=== PATIENT | male | born 1985 | race Caucasian/White ===

== ENCOUNTER 2025-07-21 15:30 | Inpatient (IN) | payer OTHER, SELFPAY ==
[2025-07-21] VITALS (14 sets, daily range): BP systolic 135–182; BP diastolic 75–103; BMI 18.8
[2025-07-21 07:55] LABS: Hematocrit 44.4 % (39.0-52.0); Hemoglobin 15.7 g/dL (13.0-18.0); Mean Corp Hgb Conc. 35.4 g/dL (33.0-37.0); Mean Corpuscular Volume 83.9 fL (80.0-94.0); Nucleated Red Blood Cells % 0 % (-); Platelet Count 327 10^3/uL (130-400); Red Cell Dist. Width 13.0 % (11.5-14.5)
[2025-07-21 08:19] LABS: AST (SGOT) 48 U/L (17-59); Albumin 5.0 g/dl (3.5-5.0); Alkaline Phosphatase 77 U/L (38-126); Blood Urea Nitrogen 20 mg/dl (9-20); Calcium 9.9 mg/dl (8.4-10.2); Carbon Dioxide 25 mmol/L (22-30); Chloride 101 mmol/L (98-107); Estimated Creatinine Clearance > 125 ml/min; Glucose 141 mg/dl (70-99); Potassium 3.9 mmol/L (3.5-5.1); Sodium 142 mmol/L (135-145); Total Protein 8.1 g/dl (6.3-8.2); eGFR > 60.00
--- NOTE | 2025-07-21 09:08 | ED.GENMED ---
History of Present Illness
<BETSEY Stahl Jr. Last Filed: 07/21/25 15:32>
General
Chief Complaint: Withdrawal Symptoms
Source: patient and police
Exam Limitations: none
Time Seen by Provider: 07/21/25 08:05
Nursing documentation reviewed up to this point in time: agreed with
History of Present Illness
History of Present Illness:
39-year-old male past medical history of substance abuse issues. Currently on 100 mg of methadone daily as well as daily use of 5-6 bags of fentanyl that he smokes. He claims that [facility] and has not gotten his methadone dose
and he is starting to have significant withdrawal at this point. Feels very shaky weak tired achy anxious nauseous.
Review of Systems
<BETSEY Stahl Jr. Last Filed: 07/21/25 15:32>
Review of Systems
Allergies reviewed?: Yes
All Other Systems: ROS reviewed and negative except as documented in HPI and ROS
Phy Exam
<BETSEY Stahl Jr. Last Filed: 07/21/25 15:32>
Physical Exam
Physical Exam:
GENERAL: Alert , tremulous agitated
EYE: pupils equal and reactive
NECK: Supple, no significant adenopathy.
ENT: o/p clr, mmm.
CARDIAC: Regular rate and rhythm .
LUNGS: Clear breath sounds bilaterally, no acute respiratory distress, no wheezes/rales/rhonchi
ABDOMEN: Soft, without focal tenderness, no r/g, no cvat
NEUROLOGICAL: Alert and oriented, no focal neuro deficits
SKIN: Warm and dry, skin intact.
MUSCULOSKELETAL: No edema, well perfused.
PSYCH: Patient appears uncomfortable
Scores
<BETSEY Stahl Jr. Last Filed: 07/21/25 15:32>
COW Clinical Opiate Withdrawal Scale
Resting Pulse Rate: 101-120
Sweating-over past 30min not from room temp or activity: Flushed or observable moistness on face
Restlessness-observation during assessment: Unable to sit still for more than a few seconds
Pupil Size: Pupils possibly larger than normal for room light
Bone or Joint Aches: Patient reports severe diffuse aching of joints/muscles
Runny Nose or Tearing-not accounted for by cold/allergies: Nasal stuffiness or unusually moist eyes
GI Upset-over last 30min: Nausea or loose stool
Tremor-observation of outstretched hands: Gross tremor or muscle twitching
Yawning-observation during assessment: Yawning once or twice during assessment
Anxiety or Irritability: Patient obviously irritable or anxious
Gooseflesh Skin: Piloerrection of skin can be felt or hairs standing up on arms
Score: 25
Withdrawal Severity: Moderately Severe Withdrawal, consider starting Suboxone
<Sydnie Murphy MD - Last Filed: 07/22/25 10:22>
COW Clinical Opiate Withdrawal Scale
Score: 25
Withdrawal Severity: Moderately Severe Withdrawal, consider starting Suboxone
Course
<Jaylen Woodward Jr., PA-C - Last Filed: 07/21/25 15:32>
Orders/Labs/Results
Orders:
Orders
07/21/25 07:47
Alcohol Urgent
Complete Blood Count/With Diff Urgent
Comprehensive Metabolic Panel Urgent
Magnesium Urgent
Comment: ADD ON
07/21/25 07:49
Electrocardiogram (*1) Urgent
Reason for Study: Other
Other Reason for Exam: withdrawal
07/21/25 08:24
0.9% Sodium Chloride 1000 ml [Nss] 1,000 ml IV BOLUS
07/21/25 08:44
Clonidine [Catapres] 0.1 mg PO NOW STA
Ketorolac [Toradol] 10 mg IV NOW STA
Tizanidine [Zanaflex] 2 mg PO NOW STA
07/21/25 10:00
Methadone HCl [Methadone 100 mg/10 ml] 50 mg PO NOW STA
07/21/25 12:30
EKG [Electrocardiogram (*1)] Urgent
Reason for Study: QTc Monitoring
07/21/25 14:52
Ondansetron Injectable [Zofran] 4 mg IV NOW ONE
07/21/25 14:56
Admit/Transfer Patient As Directed
Co-Sign Provider:
Level of Care: Inpatient admission
Assign to:: Telemetry
Physician / Group: Hospitalists
Diagnosis: Opioid withdrawal
Reason for Telemetry: Arrhythmia
Other Reason for Telemetry: Qtc monitoring
Date to Stop Telemetry: 07/24/25
Time to Stop Telemetry: 11:00
Reason for Hospitalization: Opioid withdrawal with long QTc
Expected length of stay greater than two midnights?: Yes
ELOS- Estimated Length of Stay in days: 4
I certify the patient meets the requirements for IP care: Yes
07/21/25 14:57
PRN Pain Medication Management As Directed
May give lesser potent ordered pain med per pt: Yes
preference::
Protocol:: Medication orders for pain may be administered in a
manner that supports deferring to patient preference
when the pt is:
- Requesting an ordered lesser potent pain medication.
Least to most potent pain medications are defined
as: acetaminophen < NSAID < tramadol < opioids
(morphine, oxycodone, hydromorphone).
- Requesting a lesser dose of the same medication IF
ORDERED.
- Requesting a less intrusive route of administration
if both routes are prescribed by the provider (PO <
IV).
07/21/25 15:44
Clonidine [Catapres] 0.1 mg PO Q6HPRN PRN
07/21/25 16:00
Flush (0.9% Sodium Chloride) [Flush (Nss)] See Dose Instructions IV PER PROTOCOL
07/21/25 16:31
Fentanyl, Urine Urgent
Urine Drug Abuse Screen Urgent
Date Specimen was Collected: 07/21/25
Time Specimen was Collected: 18:12
07/21/25 17:19
Tizanidine [Zanaflex] 2 mg PO Q6HPRN PRN
07/21/25 19:18
Ketorolac [Toradol] 10 mg IV Q6HPRN PRN
07/21/25 19:18
Case Management Consult ONCE
Case Management Consult: Other
Comment: opioid withdrawal
Warm Handoff Consult ONCE
Patient agreeable to Warm Hand off: Yes
Clinical Opioid Withdrawal Scale (COWS) Q4
Frequency:: now, Q4 hours x 24 hours, then PRN based on symptoms
Sequential Compression Device [Pneumatic Compression Sleeves] As Directed
Type: Knee high
DX Deep Vein Thrombosis Video Routine
07/21/25 19:46
Ketorolac [Toradol] 15 mg IV Q6HPRN PRN
07/22/25 05:53
Snblt-Btnt-Wmukvys IN AM
07/24/25 11:00
DC Protocol for Telemetry ONCE
Abnormal Lab Results
07/21/25
07:47
WBC 21.1 H 10^3/uL
(4.8-10.8)
Abs Immat Gran (auto) 0.1 H 10^3/uL
(0-0.05)
Absolute Neuts (auto) 18.9 H 10^3/uL
(1.4-6.5)
Neutrophils % 89.4 H %
(42.2-75.2)
Lymphocytes % 7.0 L %
(20.5-51.1)
Glucose 141 H mg/dl
(70-99)
07/21/25 07:47
07/21/25 07:47
Vital Signs
Initial and Last Documented VS:
Initial Vital Signs
BP
154/103
07/21/25 07:30
Last Documented Vital Signs
Temp Pulse Resp BP Pulse Ox
98.0 F 79 20 165/96 99
07/22/25 07:28 07/22/25 07:28 07/22/25 07:28 07/22/25 07:28 07/22/25 07:28
<Sydnie Murphy MD - Last Filed: 07/22/25 10:22>
Orders/Labs/Results
Orders:
Orders
07/21/25 07:47
Alcohol Urgent
Complete Blood Count/With Diff Urgent
Comprehensive Metabolic Panel Urgent
Magnesium Urgent
Comment: ADD ON
07/21/25 07:49
Electrocardiogram (*1) Urgent
Reason for Study: Other
Other Reason for Exam: withdrawal
07/21/25 08:24
0.9% Sodium Chloride 1000 ml [Nss] 1,000 ml IV BOLUS
07/21/25 08:44
Clonidine [Catapres] 0.1 mg PO NOW STA
Ketorolac [Toradol] 10 mg IV NOW STA
Tizanidine [Zanaflex] 2 mg PO NOW STA
07/21/25 10:00
Methadone HCl [Methadone 100 mg/10 ml] 50 mg PO NOW STA
07/21/25 12:30
EKG [Electrocardiogram (*1)] Urgent
Reason for Study: QTc Monitoring
07/21/25 14:52
Ondansetron Injectable [Zofran] 4 mg IV NOW ONE
07/21/25 14:56
Admit/Transfer Patient As Directed
Co-Sign Provider:
Level of Care: Inpatient admission
Assign to:: Telemetry
Physician / Group: Hospitalists
Diagnosis: Opioid withdrawal
Reason for Telemetry: Arrhythmia
Other Reason for Telemetry: Qtc monitoring
Date to Stop Telemetry: 07/24/25
Time to Stop Telemetry: 11:00
Reason for Hospitalization: Opioid withdrawal with long QTc
Expected length of stay greater than two midnights?: Yes
ELOS- Estimated Length of Stay in days: 4
I certify the patient meets the requirements for IP care: Yes
07/21/25 14:57
PRN Pain Medication Management As Directed
May give lesser potent ordered pain med per pt: Yes
preference::
Protocol:: Medication orders for pain may be administered in a
manner that supports deferring to patient preference
when the pt is:
- Requesting an ordered lesser potent pain medication.
Least to most potent pain medications are defined
as: acetaminophen < NSAID < tramadol < opioids
(morphine, oxycodone, hydromorphone).
- Requesting a lesser dose of the same medication IF
ORDERED.
- Requesting a less intrusive route of administration
if both routes are prescribed by the provider (PO <
IV).
07/21/25 15:44
Clonidine [Catapres] 0.1 mg PO Q6HPRN PRN
07/21/25 16:00
Flush (0.9% Sodium Chloride) [Flush (Nss)] See Dose Instructions IV PER PROTOCOL
07/21/25 16:31
Fentanyl, Urine Urgent
Urine Drug Abuse Screen Urgent
Date Specimen was Collected: 07/21/25
Time Specimen was Collected: 18:12
07/21/25 17:19
Tizanidine [Zanaflex] 2 mg PO Q6HPRN PRN
07/21/25 19:18
Ketorolac [Toradol] 10 mg IV Q6HPRN PRN
07/21/25 19:18
Case Management Consult ONCE
Case Management Consult: Other
Comment: opioid withdrawal
Warm Handoff Consult ONCE
Patient agreeable to Warm Hand off: Yes
Clinical Opioid Withdrawal Scale (COWS) Q4
Frequency:: now, Q4 hours x 24 hours, then PRN based on symptoms
Sequential Compression Device [Pneumatic Compression Sleeves] As Directed
Type: Knee high
DX Deep Vein Thrombosis Video Routine
07/21/25 19:46
Ketorolac [Toradol] 15 mg IV Q6HPRN PRN
07/22/25 05:53
Ndbth-Qvnc-Hrahqzt IN AM
07/24/25 11:00
DC Protocol for Telemetry ONCE
Abnormal Lab Results
07/21/25
07:47
WBC 21.1 H 10^3/uL
(4.8-10.8)
Abs Immat Gran (auto) 0.1 H 10^3/uL
(0-0.05)
Absolute Neuts (auto) 18.9 H 10^3/uL
(1.4-6.5)
Neutrophils % 89.4 H %
(42.2-75.2)
Lymphocytes % 7.0 L %
(20.5-51.1)
Glucose 141 H mg/dl
(70-99)
07/21/25 07:47
07/21/25 07:47
Vital Signs
Initial and Last Documented VS:
Initial Vital Signs
BP
154/103
07/21/25 07:30
Last Documented Vital Signs
Temp Pulse Resp BP Pulse Ox
98.0 F 79 20 165/96 99
07/22/25 07:28 07/22/25 07:28 07/22/25 07:28 07/22/25 07:28 07/22/25 07:28
<Jaylen Woodward Jr. PA-C - Last Filed: 07/21/25 15:32>
MDM/Problems Addressed
MDM/Problems Addressed:
39-year-old male presenting to the emergency department concerns of opioid withdrawal. He typically takes 100 mg of methadone daily and does still continue to use fentanyl via smoking 5-6 bags daily. On arrival he was mildly tachycardic. White
count is elevated but he claims that he is in retching. No specific infectious symptoms. Electrolytes normal. EKG showing prolonged QT C of 607. There was concern of this level considering patient's treatment is methadone case was discussed with
pharmacist that claim giving half dose of methadone would be appropriate in the setting with close monitoring. Patient then went to [facility]. At this point the QTc did seem to improve to the 400s. Case was discussed with cardiology they felt the
bigeminy and of itself did not represent an emergent process. They did recommend potentially avoiding methadone concerning the original QTc. It was discussed further with the patient but he was unwilling to take any other alternative treatment
including Suboxone due to previous experience. It appears that methadone likely is the optimal treatment for the patient however there is concerns of patient's cardiac reaction to this. Plan to admit for cardiac monitoring while reintroducing
methadone.
Patient's methadone dosing was confirmed with roge Adkins to be 100 mg daily.
<Jaylen Woodward Jr., PA-C - Last Filed: 07/21/25 15:32>
*Pulse Oximetry
SaO2: 97
Oxygen Mode of Delivery: Room air
Patient hypoxic: no (99)
*Critical Care Note
Total Time (30-74mins, 75-104mins- exclusive of procedures): Not Applicable
ED Attending Note
<Jaylen Woodward Jr., PA-C - Last Filed: 07/21/25 15:32>
-
Portions of this chart may have been created with voice recognition software.� Occasional wrong word or��sound alike� substitutions may have occurred due to the inherent limitations of voice recognition software.
<Sydnie Murphy MD - Last Filed: 07/22/25 10:22>
ED Attending Note
Patient seen and examined by attending physician: Yes
I performed the substantive portion of visit, reviewed & personally made and approve the management plan that is documented in note by myself or DARVIN.: Yes
ED Attending Note:
39-year-old male with a history of methadone and fentanyl use, typically 100 mg of methadone a day, 5-6 bags of fentanyl per day, has not had any opioids in 2 days� Presents with typical withdrawal symptoms including nausea vomiting, etc. Asking
for methadone here. Concern given patient's QTc, extensive investigation into this, patient has been getting methadone every day for months, and we suspect that risk of arrhythmia with continuing methadone here is very low, and likely QTc is
baseline for patient. Did discuss with him risk and benefits and he is very eager to receive this medication.
Discharge Plan
Departure
Patient Disposition: Admit
Date of Disposition: 07/21/25
Time of Disposition: 15:31
Admit to: IVU
Admit to doctor: Lenny
Presentation/result/management discussed w/ accepting MD/DO: Hospitalist
Patient with high blood pressure during this ER visit?: No
Condition: Fair
Covid-19: Not Applicable
Discharge Problem:
Opioid withdrawal
Interventions
Interventions:
*Risk Screen - Suicide Last Done: 07/21/25 07:38
*General Assessment Last Done: 07/21/25 07:38
*Neglect/Abuse Screening Last Done: 07/21/25 07:38
*ED- Fall Risk Assessment Last Done: 07/21/25 07:38
*ED COVID-19 Vaccine History Last Done: 07/21/25 07:38
*Nursing Disposition Last Done: 07/22/25 00:27
ED- Neurological Assessment Last Done: 07/21/25 07:38
ED-Psychological Assessment Last Done: 07/21/25 07:42
Discharge Date and Time
Discharge Date/Time: 07/22/25 00:29
[2025-07-21 09:19] LABS: ALT (SGPT) 50 U/L (0-50)
[2025-07-21 09:26] LABS: Magnesium 1.9 mg/dl (1.6-2.3)
[2025-07-21] MEDS: METHADONE 100 MG/10 ML 50 MG PO (10:13)
[2025-07-21] MEDS: TORADOL 10 MG IV (10:16)
[2025-07-21] MEDS: CATAPRES 0.1 MG PO (10:17)
[2025-07-21] MEDS: NSS 1000 IV (10:24)
--- NOTE | 2025-07-21 15:20 | HPS.HSE ---
Addendum entered and electronically signed by Werner Yeh MD 07/21/25 20:44:
Attending Addendum-
I performed a history and physical exam of the patient and discussed his management with the resident. I reviewed the resident's note and agree with the documented findings and plan of care CC/HPI- sent from [facility] for severe withdrawl sxs. per
CO present possibly vomited some blood. Patient actively withdrawing complains of pain diaphoreses nausea vomiting abd pain yawning lacrimation. Patient states he is usually on methadone has not gotten methadone since Sunday. Was taking 4-5 bags of
fentanyl daily. Full 12 point ROS reviewed and negative except as documented Exam- vitals reviewed in EMR GEN-mod distress heart RRR lungs clear abd soft LE no edema
Plan:
# Acute opioid withdrawal - OUD
-start COWS
-symptomatic care with tigan (qtc), clonidine, loperamide, ketorolac etc
-PDMP reviewed- has been getting Suboxone 8mg/2mg TID- will restart
-avoid methadone as patient is requesting
-cont IVF
-c/s BCAREs
# Hypertension
-patient not on meds [employer]- CTM as patient withdrawing
-start prn clonidine
# Prolonged QTC
-Initial EKG QTc-620 repeat corrected back to normal
-ctm on tele
# Leukocytosis
- likely from stress
- repeat CBC in am
FULL CODE
DVT Prophylaxis: SCDs
Dispo from [facility] DC back in am
Time spent coordinating care, review of plan of care with resident, personally reviewed previous records in EMR, med rec, labs, radiology, d/w nursing, CO�- 75 mins
Original Note:
Family Physician
-
Family Physician: Facility [facility]. [facility]
Chief Complaint
-
Opioid withdrawal
History of Present Illness
Patient is a 39-year-old male who presents to the emergency department with signs and symptoms of opioid withdrawal. He has a past medical history of opioid substance abuse and dependency, hypertension, and prediabetes. In the past he usually
takes 100 mg of methadone daily and he also uses 5-6 bags of fentanyl that he smokes during the day. His last fentanyl use was on Sunday and he was incarcerated on Sunday and has been unable to get any methadone or opioids. In the emergency
department he states that he has nausea, sweating, anxiety, muscle pain, is weak, shaky, and has goosebumps. In the emergency department he was rated at a 25 on the clinical opioid withdrawal scale. While in the emergency department he got
tizanidine, clonidine, Toradol, and 50 mg of methadone. He was hypertensive, had an elevated respiratory rate, leukocytosis with a white blood cell count of 21.1. He had 2 EKGs conducted in the emergency department which showed elongated QTc with
frequent PVCs in the pattern of bigeminy. Patient was admitted to [facility] for management of acute opioid withdrawal and elevated QTc.
Medical History
Past Medical History
Past Medical History: Reports HTN
Additional Past Medical History:
Opioid abuse/dependency
Prediabetes
Past Surgical History: Reports None
Social History
Tobacco: Smoker
Alcohol: Occasional
Drug: Narcotics (Fentanyl, heroin, methadone, Suboxone)
Personal: Single
Living: Snf
Employment: Not Employed
Family History
Family History: Not pertinent
Allergies / Home Medications
Allergies reflects when Allergies were last updated in [facility].
Home Medications with original date entered in [facility]
Allergy/Medication List:
Allergies
Allergy/AdvReac Type Severity Reaction Status Date / Time
No Known Allergies Allergy Verified 07/21/25 07:42
Review of Systems
-
History Source: Patient
Constitutional: Reports Fatigue and Chills
EENT: Reports Runny Nose
Respiratory: Reports No Symptoms
Cardiac: Reports See HPI
Abdomen/GI: Reports See HPI, Abdominal Pain and Nausea
: Reports No Symptoms
Musculoskeletal: Reports See HPI and Muscle Pain
Skin: Reports No Symptoms
Neurological: Reports See HPI
Psych: Reports Anxiety
Physical Exam
Vital Signs
Vital Signs
Temp Pulse Resp BP Pulse Ox
97.7 F 81 20 160/79 99
07/21/25 07:38 07/21/25 12:15 07/21/25 12:15 07/21/25 12:00 07/21/25 09:15
Physical Exam
General: Well Developed, Well Nourished, Appears in Distress, Pain and Sweats
HEENT: NormoCephalic, Anicteric, Moist mucous membranes and Other (Gingival hyperplasia)
Respiratory: Clear
Cardiac: S1/S2 and Irregular Rhythm; No Murmur, Rub, Gallop, Peripheral Edema, JVD or HJR
GI: Soft, Non Tender, Non Distended and Normal Bowel Sounds
Rectal: Deferred by Provider
Genito-urinary: Deferred by me
Musculoskeletal: No Clubbing, No Cyanosis and No Edema
Skin: Warm and Dry; No Rash, Jaundice, Ulcers or Lesions
Neuro: Awake, Alert, Oriented and AO x 3
Psych: Calm
Laboratory Results
-
07/21/25 07:47
07/21/25 07:47
Laboratory Results
Total Bilirubin 0.7 mg/dl (0.2-1.3) 07/21/25 07:47
AST 48 U/L (17-59) 07/21/25 07:47
ALT 50 U/L (0-50) 07/21/25 07:47
Alkaline Phosphatase 77 U/L (38-126) 07/21/25 07:47
Impression/Plan
-
Assessment/Plan:
-Acute opioid withdrawal: Unresolved
Patient rated at a 25 on the clinical opioid withdrawal scale
Tigan as antiemetic
Catapres 0.1 mg p.o. every 6 hours as needed
Loperamide for diarrhea
Keto [place] for myalgia
Patient given 8 mg of Subutex 3 times daily
IV fluid support
Admitted to telemetry to monitor elongated QTc
-Hypertension: Monitoring
Patient states that he has a history of hypertension that is untreated. He takes no medications in the outpatient setting.
On presentation the patient's blood pressure is 160/79 -Will continue to monitor as the patient approaches his baseline
Elevated blood pressure may be secondary to anxiety/discomfort/withdrawal from opioid medications.
-Opioid dependence/abuse:
Will connect the patient to [facility]
-Nausea: Unresolved
Tigan as antiemetic
-Elevated QTc: Improving
Initial EKG in the emergency department had a elongated QTc with a value of 620 MS. Sinus tachycardia, biatrial enlargement, left ventricular hypertrophy.
Secondary EKG had improved QTc duration shortened to 452
FULL CODE STATUS
DVT Prophylaxis: SCDs
[2025-07-21] MEDS: ZOFRAN 4 MG IV (17:55)
[2025-07-21] MEDS: SUBUTEX 8 MG SL (17:56)
[2025-07-21] MEDS: ZANAFLEX 2 MG PO (19:24)
[2025-07-21] MEDS: BENADRYL 25 MG IV (22:03)
[2025-07-21] MEDS: SUBUTEX SL (22:27)
[2025-07-22] VITALS (7 sets, daily range): BP systolic 144–171; BP diastolic 74–108; BMI 18.3
[2025-07-22] MEDS: TORADOL 15 MG IV ×2 (01:06→22:33)
[2025-07-22] MEDS: TIGAN 200 MG IM ×4 (02:13→22:39)
[2025-07-22] MEDS: ZANAFLEX 2 MG PO ×2 (04:10→22:52)
[2025-07-22 07:08] LABS: ALT (SGPT) 40 U/L (0-50); AST (SGOT) 37 U/L (17-59); Albumin 4.5 g/dl (3.5-5.0); Alkaline Phosphatase 80 U/L (38-126); Total Protein 7.3 g/dl (6.3-8.2)
--- NOTE | 2025-07-22 07:40 | W.PN.HOSP.TC ---
Addendum entered and electronically signed by Werner Yeh MD 07/22/25 22:28:
Attending Addendum-I saw and evaluated the patient. I reviewed the resident�s note and agree with findings and plan as documented in the resident�s note. Sub: feels improved after receiving methadone. Staes sxs of withdrawl have started to subside.
Still tremulous. Deneis CP palps. Full 12 point ROS reviewed and negative except as documented Exam- vitals reviewed in EMR GEN-NAD drowsy heart RRR lungs clear abd soft LE no edema
Plan:
# Acute opioid withdrawal - OUD
- urine tx pos for methadone, amphetamines, cocaine, fentanyl, benzos
- cont COWS- moderate
-symptomatic care with tigan (qtc), clonidine, loperamide, ketorolac etc
-PDMP reviewed- has been getting Suboxone 8mg/2mg TID but neg in UDS- DC no further rxs
-verified methadone dosing with clinic-not on PDMP- cont 100mg/daily
-DC IVF
-c/s BCAREs
# Hypertension
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
-cont prn clonidine
# Prolonged QTC
-Initial EKG QTc-620 repeat corrected back to normal
-repeat EKG today as now on methadone
# Leukocytosis
- resolving
- likely from stress
- repeat CBC in am
FULL CODE
DVT Prophylaxis: SCDs
Dispo from [facility] [facility], DC back in am
Time spent coordinating care, review of plan of care with resident, personally reviewed records in EMR, med rec, consults, notes, labs, radiology, d/w nursing,CO, pharmacy, clinic � 51mins
Original Note:
Today's Communication/Plan
-
Patient's COWS score is at a 17 which is an improvement from yesterday. Unfortunately the patient continues to feel discomfort and has reduced oral intake. Patient also has noted hiccups. Patient does not believe the Subutex is effectively
treating his withdrawal symptoms.
Reached out to [facility] in [place] where the patient states that he got 100 mg of methadone daily. Staff confirmed that he is currently enrolled in their program and his last dose was received on 07/19/2025 at 100 mg. They were not aware
that he was receiving Subutex through another provider organization.
Assessment / Plan
Assessment / Plan
Assessment/plan:
-Acute opioid withdrawal: Unresolved
Patient rated at a 25 on the clinical opioid withdrawal scale on admission
Tigan as antiemetic
Catapres 0.1 mg p.o. every 6 hours as needed
Loperamide for diarrhea
Ketolorac for myalgia
Patient given 8 mg of Suboxone 3 times daily -as per PDMP records the patient had Suboxone prescription filled from 04/22/2025 every 7 days up until 07/15/2025 which was approximately the date around the time he was incarcerated. Patient insists
that he receives methadone through [facility] in [place] -I reached out to the clinic and discovered that the patient had been admitted to their program on 06/24 and has been receiving 100 mg of methadone daily through their clinic. His last
dose of methadone was on 07/19/2025.
It is possible that the patient's opioid withdrawal is a consequence of combined usage of fentanyl, methadone, and Suboxone.
Patient currently a 17 on the COWS score at 07/22/2025 at 8 AM
Continue IV fluid support
Admitted to telemetry to monitor elongated QTc
Called and reached the [facility] in [place]. They confirm that the patient has been receiving 100 mg of methadone daily since 06/22. Discontinuing Suboxone and resuming methadone 100 mg.
-Hypertension: Monitoring
Patient states that he has a history of hypertension that is untreated. He takes no medications in the outpatient setting.
On presentation the patient's blood pressure is 160/79 -Will continue to monitor as the patient approaches his baseline
Elevated blood pressure may be secondary to anxiety/discomfort/withdrawal from opioid medications.
Catapres 0.1 mg p.o. every 6 hours as needed
Patient remains hypertensive on 07/18/2025 with a systolic blood pressure ranging from 140s-170s will continue to monitor
-Opioid dependence/abuse:
Patient receive substance abuse services at [facility]
-Nausea: Unresolved
Tigan as antiemetic
-Elevated QTc: Improving
Initial EKG in the emergency department had a elongated QTc with a value of 620 MS. Sinus tachycardia, biatrial enlargement, left ventricular hypertrophy.
Secondary EKG had improved QTc duration shortened to 452
EKG study conducted on 07/22/2025 showed an ectopic atrial rhythm with frequent premature ventricular complexes in a pattern of bigeminy. There were T wave abnormalities with consideration of inferior ischemia. T wave inversion now evident on
inferior leads and T wave inversion evident on lateral leads
Monitoring on Tele
- Leukocytosis: Monitoring
Likely a secondary response to stress
Follow-up with CBC
FULL CODE STATUS
DVT Prophylaxis: SCDs
Anticipated Discharge: > 48 hours
Subjective/Interval History
-
Date of Service: July 22, 2025
Met with patient at the bedside. Overall, he states that his symptoms have not improved since yesterday. He has had a large amount of hiccups throughout the morning and the present guards next to him said that he has been hiccuping quite a bit.
His breakfast was half eaten and he was laying uncomfortably in bed. Patient states that 'the Subutex is not doing shit' and hopes to be switched to methadone. He states that he gets methadone 100mg at the [facility] in [place]. After
calling [facility] in [place] it was confirmed that the patient was admitted to their service on 06/22/2025 and received his last dose of methadone on 07/19/2025. They were not aware that the patient was getting Suboxone elsewhere.
Objective Data
-
Labs:
Labs
07/22/25 05:33
07/22/25 07:26
Vital Signs:
Vital Signs
Temp Pulse Resp BP Pulse Ox
98.0 F 79 20 165/96 99
07/22/25 07:28 07/22/25 07:28 07/22/25 07:28 07/22/25 07:28 07/22/25 07:28
I&O
07/21/25 07/22/25 07/23/25
06:59 06:59 06:59
Intake Total 480 / 480
Output Total 400 / 400
Balance 80 / 80
Review of Systems
-
History Source: Patient
Constitutional: Reports Fatigue and Chills
EENT: Reports Runny Nose
Respiratory: Reports No Symptoms
Cardiac: Reports No Symptoms
Abdomen/GI: Reports Nausea and Other (Hiccups)
Breast: Reports No Symptoms
Genitourinary: Reports No Symptoms
Musculoskeletal: Reports Myalgias
Skin: Reports No Symptoms
Neuro: Reports Tremors
Endocrine: Reports Temp Intolerance (Intolerance to cold)
Hematologic / Lymphatic: Reports No Symptoms
Allergy / Immunology: Reports No Symptoms
Physical Exam
-
General: Well Developed, Well Nourished, Pain, Chills and Sweats
HEENT: Normocephalic, Atraumatic and Other (Gingival hyperplasia)
Respiratory: Clear to Auscultation
Cardiac: Regular Rhythm and S1/S2
GI: Soft, Nontender, Nondistended and Normal Bowel Sounds
Rectal: Deferred by Provider
Genito-urinary: Deferred by me
Musculoskeletal: No Clubbing, No Cyanosis and No Edema
Skin: Warm, Dry and Normal Turgor; Negative Rash, Ulcers, Lesions or Jaundice
Neuro: Awake, Alert, Oriented and AO x 3
Psych: Agitated and Anxious
[2025-07-22] MEDS: SUBUTEX 8 MG SL (08:19)
[2025-07-22 08:20] LABS: Blood Urea Nitrogen 18 mg/dl (9-20); Calcium 9.5 mg/dl (8.4-10.2); Carbon Dioxide 24 mmol/L (22-30); Chloride 104 mmol/L (98-107); Estimated Creatinine Clearance > 125 ml/min; Glucose 104 mg/dl (70-99); Potassium 3.6 mmol/L (3.5-5.1); Sodium 138 mmol/L (135-145); eGFR > 60.00
[2025-07-22] MEDS: TORADOL 10 MG IV ×2 (08:20→14:21)
[2025-07-22 08:23] LABS: Hematocrit 42.1 % (39.0-52.0); Hemoglobin 14.9 g/dL (13.0-18.0); Mean Corp Hgb Conc. 35.4 g/dL (33.0-37.0); Mean Corpuscular Volume 85.4 fL (80.0-94.0); Platelet Count 293 10^3/uL (130-400); Red Cell Dist. Width 13.0 % (11.5-14.5)
--- NOTE | 2025-07-22 10:01 | PTCARENOTE ---
Per Carline RN at residential-patient's methadone clinic is [facility] @ [phone], [address], [address], [place]. Patient's last Methadone dose
07/17/25.
--- NOTE | 2025-07-22 11:30 | CM ---
CM following re: discharge planning.
Reviewed pt's chart, met with pt and two guards from [facility] at bedside.
Pt is a 39 year old male,admitted with primary dx of Opioid withdrawal. per guards, pt is from [facility] and they confirmed that pt will return back to [facility] when medically stable. Pt will receive substance abuse services at [facility] nursing report: [phone]
Discharge instructions fax: [phone]
D/C plan: return back to [facility].
CM will follow with discharge plan updates as hospitalization progresses
[2025-07-22] MEDS: METHADONE 100 MG/10 ML PO (12:20)
[2025-07-22] MEDS: CATAPRES 0.1 MG PO (16:59)
[2025-07-22] MEDS: LOVENOX 40 MG SC (17:05)
[2025-07-22 18:48] LABS: Magnesium 1.9 mg/dl (1.6-2.3)
[2025-07-23] MEDS: CATAPRES 0.1 MG PO (02:55)
[2025-07-23 03:18] VITALS: BP 147/111
[2025-07-23] MEDS: TORADOL 15 MG IV ×3 (05:42→19:37)
[2025-07-23 07:06] LABS: Hematocrit 44.9 % (39.0-52.0); Hemoglobin 16.0 g/dL (13.0-18.0); Mean Corp Hgb Conc. 35.6 g/dL (33.0-37.0); Mean Corpuscular Volume 85.0 fL (80.0-94.0); Platelet Count 259 10^3/uL (130-400); Red Cell Dist. Width 12.9 % (11.5-14.5)
--- NOTE | 2025-07-23 07:19 | W.PN.HOSP.TC ---
Addendum entered and electronically signed by Werner Yeh MD 07/23/25 21:47:
Attending Addendum-I saw and evaluated the patient. I reviewed the resident�s note and agree with findings and plan as documented in the resident�s note. Sub: feels improved after receiving methadone. Staes sxs of withdrawl have started to subside.
Still tremulous. Deneis CP palps. Full 12 point ROS reviewed and negative except as documented Exam- vitals reviewed in EMR GEN-NAD drowsy heart RRR lungs clear abd soft LE no edema
Plan:
# Acute opioid withdrawal - OUD
- urine tx pos for methadone, amphetamines, cocaine, fentanyl, benzos
- cont COWS-trending down
- symptomatic care with tigan (qtc), clonidine, loperamide, ketorolac etc
- PDMP reviewed- has been perscribed Suboxone 8mg/2mg TID as OP but neg in UDS- DC no further rxs
- verified methadone dosing with clinic-not on PDMP- decrease from 100mg to 50mg/daily
- DC IVF
- c/s BCAREs
# Hypertension
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
-cont prn clonidine
# Prolonged QTC
- repeat EKG 07/23 prolonged qtc-618
- repeat EKG in PM
- check ECHO place on tele
- decrease dose of methadone
- avoid QTc prolonging meds
# Leukocytosis
- resolving
- likely from stress
- repeat CBC in am
FULL CODE
DVT Prophylaxis: SCDs
Dispo from [employer], DC back in am
Time spent coordinating care, review of plan of care with resident, personally reviewed records in EMR, med rec, consults, notes, labs, radiology, d/w nursing,CO, pharmacy � 52 mins
Original Note:
Today's Communication/Plan
-
Patient appears to be near be near or at baseline and is resting comfortably in bed. The acute phase of his opioid withdrawal has resolved.
Follow-up EKG to be conducted. Magnesium and Potassium repleted
Echocardiogram ordered
Methadone decreased to 50mg to address elongated QTc
If patient medically stable we will move forward with discharge later on today.
Assessment / Plan
Assessment / Plan
Assessment/plan:
-Acute opioid withdrawal: Resolved
Patient rated at a 25 on the clinical opioid withdrawal scale on admission
PDMP reviewed�he has been receiving Suboxone 8 mg / 2 mg 3 times daily but was negative on the urine drug screen
Tigan as antiemetic
Catapres 0.1 mg p.o. every 6 hours as needed
Loperamide for diarrhea
Ketolorac for myalgia
Patient given 8 mg of Suboxone 3 times daily -as per PDMP records the patient had Suboxone prescription filled from 04/22/2025 every 7 days up until 07/15/2025 which was approximately the date around the time he was incarcerated. Patient insists
that he receives methadone through [facility] in [place] -I reached out to the clinic and discovered that the patient had been admitted to their program on 06/24 and has been receiving 100 mg of methadone daily through their clinic. His last
dose of methadone was on 07/19/2025.
It is possible that the patient's opioid withdrawal is a consequence of combined usage of fentanyl, methadone, and Suboxone.
Patient currently a 17 on the COWS score at 07/22/2025 at 8 AM
Continue IV fluid support
Admitted to telemetry to monitor elongated QTc
Called and reached [facility] in [place]. They confirm that the patient has been receiving 100 mg of methadone daily since 06/22. Discontinuing Suboxone and resuming methadone 100 mg.
Patient appears to be no longer in acute opioid withdrawal. COWS score of 3-4 based on my assessment.
Methadone decreased to 50mg to address prolonged QTc
-Hypertension: Monitoring
Patient states that he has a history of hypertension that is untreated. He takes no medications in the outpatient setting.
On presentation the patient's blood pressure is 160/79 -Will continue to monitor as the patient approaches his baseline
Elevated blood pressure may be secondary to anxiety/discomfort/withdrawal from opioid medications.
Catapres 0.1 mg p.o. every 6 hours as needed
Patient remains hypertensive on 07/18/2025 with a systolic blood pressure ranging from 140s-170s will continue to monitor
-Opioid dependence/abuse:
Patient will receive substance abuse services at [facility]
-Nausea: Unresolved
Tigan as antiemetic
-Elevated QTc: Improving
Initial EKG in the emergency department had a elongated QTc with a value of 620 MS. Sinus tachycardia, biatrial enlargement, left ventricular hypertrophy.
Secondary EKG had improved QTc duration shortened to 452
EKG study conducted on 07/22/2025 showed an ectopic atrial rhythm with frequent premature ventricular complexes in a pattern of bigeminy. There were T wave abnormalities with consideration of inferior ischemia. T wave inversion now evident on
inferior leads and T wave inversion evident on lateral leads
Additional EKG ordered to assess improvement after the acute opioid withdrawal phase has ended
Methadone decreased to 50mg to address prolonged QTc
Troponin within normal limits
Monitoring on Tele
- Leukocytosis: Monitoring
Likely a secondary response to stress
Follow-up with CBC
FULL CODE STATUS
DVT Prophylaxis: SCDs
Anticipated Discharge: Today
Subjective/Interval History
-
Date of Service: July 23, 2025
Met with patient at the bedside. He has significantly improved and appears to be no longer going through acute opioid withdrawal symptoms. He is waiting for his methadone and breakfast and was appreciative for the medication switch back to his
methadone. He feels mild abdominal pain with slight nausea. The nausea is well-managed with the Tigan he is receiving.
Objective Data
-
Labs:
Laboratory Results
07/23/25
06:46
WBC 12.3 H
Hgb 16.0
Hct 44.9
Plt Count 259
Sodium Pending
Potassium Pending
Chloride Pending
Carbon Dioxide Pending
BUN Pending
Creatinine Pending
Glucose Pending
Calcium Pending
Total Bilirubin Pending
AST Pending
ALT Pending
Alkaline Phosphatase Pending
Vital Signs:
Vital Signs
Temp Pulse Resp BP Pulse Ox
98.8 F 88 18 147/111 97
07/23/25 03:18 07/23/25 03:18 07/23/25 03:18 07/23/25 03:18 07/23/25 03:18
I&O
07/22/25 07/23/25 07/24/25
06:59 06:59 06:59
Intake Total 480 / 480 1185 / 1185
Output Total 400 / 400 925 / 925
Balance 80 / 80 260 / 260
Review of Systems
-
History Source: Patient
Respiratory: Reports No Symptoms
Cardiac: Reports No Symptoms
Abdomen/GI: Reports Abdominal Pain and Nausea
Breast: Reports No Symptoms
Genitourinary: Reports No Symptoms
Musculoskeletal: Reports No Symptoms
Skin: Reports No Symptoms
Neuro: Reports No Symptoms
Endocrine: Reports No Symptoms
Hematologic / Lymphatic: Reports No Symptoms
Physical Exam
-
General: Well Developed, Well Nourished, No Apparent Distress and Comfortable
HEENT: Normocephalic, Atraumatic and Moist Mucous Membranes
Respiratory: Clear to Auscultation; Negative Wheezes, Rales, Rhonchi or Crackles
Cardiac: S1/S2 and Irregular Rhythm; Negative Murmur, Rub or JVD
GI: Soft, Nontender, Nondistended and Normal Bowel Sounds
Skin: Warm, Dry and Normal Turgor; Negative Rash, Ulcers, Lesions or Jaundice
Neuro: Awake, Alert, Oriented and AO x 3
Psych: Calm
[2025-07-23 07:32] LABS: ALT (SGPT) 42 U/L (0-50); AST (SGOT) 66 U/L (17-59); Albumin 4.4 g/dl (3.5-5.0); Alkaline Phosphatase 73 U/L (38-126); Blood Urea Nitrogen 20 mg/dl (9-20); Calcium 10.2 mg/dl (8.4-10.2); Carbon Dioxide 28 mmol/L (22-30); Chloride 102 mmol/L (98-107); Estimated Creatinine Clearance > 125 ml/min; Glucose 104 mg/dl (70-99); Potassium 3.8 mmol/L (3.5-5.1); Sodium 137 mmol/L (135-145); Total Protein 7.5 g/dl (6.3-8.2); Troponin I < 0.012 ng/ml; eGFR > 60.00
[2025-07-23 07:44] VITALS: BP 138/106
[2025-07-23] MEDS: METHADONE 100 MG/10 ML PO (07:58)
[2025-07-23] MEDS: TIGAN 200 MG IM (08:40)
--- NOTE | 2025-07-23 10:36 | PTCARENOTE ---
Pt with noted bigeminy in alarm review, made aware, EKG obtained. No new orders at this time.
[2025-07-23 11:36] VITALS: BP 143/119
[2025-07-23 11:56] LABS: Magnesium 2.1 mg/dl (1.6-2.3)
[2025-07-23] MEDS: MAGNESIUM SULFATE 102 GRAMS IV (12:08)
[2025-07-23] MEDS: KLOR-CON 20 MEQ PO (12:13)
--- NOTE | 2025-07-23 13:03 | CM ---
CM following re: discharge planning.
Reviewed pt's chart.
Pt is from [facility] and guards confirmed that pt will return back to [facility] when medically stable. Pt will receive substance abuse services at [facility] nursing report: [phone]
Discharge instructions fax: [phone]
D/C plan: return back to [facility].
[2025-07-23 15:38] VITALS: BP 151/114
[2025-07-23] MEDS: LOVENOX 40 MG SC (17:31)
[2025-07-23 19:53] VITALS: BP 163/120
[2025-07-23 23:15] VITALS: BP 161/121
[2025-07-24 03:31] VITALS: BP 159/119
[2025-07-24 07:15] VITALS: BP 166/115
--- NOTE | 2025-07-24 07:27 | W.PN.HOSP.TC ---
Addendum entered and electronically signed by Werner Yeh MD 07/24/25 22:13:
Attending Addendum-I saw and evaluated the patient. I reviewed the resident�s note and agree with findings and plan as documented in the resident�s note. Sub: sleeping on entry to room. on awaking complains of abd pain. 'can i just stay another
day?' no vomiting. eating without difficulty. Denies CP palps. Full 12 point ROS reviewed and negative except as documented Exam- vitals reviewed in EMR GEN-NAD drowsy heart RRR lungs clear abd soft LE no edema
Plan:
# Acute opioid withdrawal - OUD
- urine tx pos for methadone, amphetamines, cocaine, fentanyl, benzos
- cont COWS-trending down
- symptomatic care with tigan (qtc), clonidine, loperamide, ketorolac etc
- PDMP reviewed- has been perscribed Suboxone 8mg/2mg TID as OP but neg in UDS- DC no further rxs
- verified methadone dosing with clinic-not on PDMP- decreased from 100mg to 50mg/daily
- DC IVF
- c/s BCAREs
# Hypertension
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
-cont prn clonidine
# Prolonged QTC
- repeat EKG 07/23 prolonged qtc-618
- repeat EKG 07/24- 448
- check ECHO-WNL
- cont decrease dose of methadone
- avoid QTc prolonging meds
# Leukocytosis
- resolved
- likely from stress
FULL CODE
DVT Prophylaxis: SCDs
Dispo from [employer] [facility], DC today with 14 day script of methadone given for 50mg daily.
Time spent coordinating care, DC planning, review of DC plan of care with resident, transition of care, review of records, med rec/scripts sent electronically, consults, notes, d/w consultants, nursing, and CO/CM� 33 mins >50% of this time was
devoted to counseling and coordination of care
Original Note:
Today's Communication/Plan
-
Patient is medically stable and appropriate for discharge.
We will move forward with discharge planning.
Discharged to [facility]
Assessment / Plan
Assessment / Plan
Assessment/plan:
-Acute opioid withdrawal: Resolved
Patient rated at a 25 on the clinical opioid withdrawal scale on admission
PDMP reviewed�he has been receiving Suboxone 8 mg / 2 mg 3 times daily but was negative on the urine drug screen
Tigan as antiemetic
Catapres 0.1 mg p.o. every 6 hours as needed
Loperamide for diarrhea
Ketolorac for myalgia
Patient given 8 mg of Suboxone 3 times daily -as per PDMP records the patient had Suboxone prescription filled from 04/22/2025 every 7 days up until 07/15/2025 which was approximately the date around the time he was incarcerated. Patient insists
that he receives methadone through [facility] in [place] -I reached out to the clinic and discovered that the patient had been admitted to their program on 06/24 and has been receiving 100 mg of methadone daily through their clinic. His last
dose of methadone was on 07/19/2025.
It is possible that the patient's opioid withdrawal is a consequence of combined usage of fentanyl, methadone, and Suboxone.
Patient currently a 17 on the COWS score at 07/22/2025 at 8 AM
Continue IV fluid support
Admitted to telemetry to monitor elongated QTc
Called and reached disorder clinic in [place]. They confirm that the patient has been receiving 100 mg of methadone daily since 06/22. Discontinuing Suboxone and resuming methadone 100 mg.
Patient appears to be no longer in acute opioid withdrawal. COWS score of 3-4 based on my assessment.
Methadone decreased to 50mg to address prolonged QTc
-Hypertension: Monitoring
Patient states that he has a history of hypertension that is untreated. He takes no medications in the outpatient setting.
On presentation the patient's blood pressure is 160/79 -Will continue to monitor as the patient approaches his baseline
Elevated blood pressure may be secondary to anxiety/discomfort/withdrawal from opioid medications.
Catapres 0.1 mg p.o. every 6 hours as needed
Patient remains hypertensive on 07/18/2025 with a systolic blood pressure ranging from 140s-170s will continue to monitor
-Opioid dependence/abuse:
Patient will receive substance abuse services at [facility]
-Nausea: Unresolved
Tigan as antiemetic
-Elevated QTc: Improving
Initial EKG in the emergency department had a elongated QTc with a value of 620 MS. Sinus tachycardia, biatrial enlargement, left ventricular hypertrophy.
Secondary EKG had improved QTc duration shortened to 452
EKG study conducted on 07/22/2025 showed an ectopic atrial rhythm with frequent premature ventricular complexes in a pattern of bigeminy. There were T wave abnormalities with consideration of inferior ischemia. T wave inversion now evident on
inferior leads and T wave inversion evident on lateral leads
Additional EKG ordered to assess improvement after the acute opioid withdrawal phase has ended
Methadone decreased to 50mg to address prolonged QTc
Troponin within normal limits
Monitoring on Tele
- Leukocytosis: Monitoring
Likely a secondary response to stress
Follow-up with CBC
- Underweight:
BMI: 18.3
FULL CODE STATUS
DVT Prophylaxis: SCDs
Anticipated Discharge: Today
Subjective/Interval History
-
Date of Service: July 24, 2025
Met with the patient at the bedside. Overall, he is doing well and offers no complaints at the present time except that he continues to have mild abdominal tenderness. His appetite is normal and he has been eating and drinking regularly. He does
not have any sweats, goosebumps, diarrhea, myalgia, nausea, or irritability as compared to his initial presentation. Patient is aware that his methadone has been decreased to 50 mg.
Objective Data
-
Labs:
Labs
07/24/25 07:39
07/24/25 07:39
Vital Signs:
Vital Signs
Temp Pulse Resp BP Pulse Ox
98.3 F 85 18 166/115 95
07/24/25 07:15 07/24/25 07:15 07/24/25 07:15 07/24/25 07:15 07/24/25 07:15
I&O
07/23/25 07/24/25 07/25/25
06:59 06:59 06:59
Intake Total 1185 / 1185 1582 / 1582
Output Total 925 / 925 1575 / 1575
Balance 260 / 260
Review of Systems
-
History Source: Patient
Respiratory: Reports No Symptoms
Cardiac: Reports No Symptoms
Abdomen/GI: Reports Abdominal Pain
Breast: Reports No Symptoms
Genitourinary: Reports No Symptoms
Musculoskeletal: Reports No Symptoms
Skin: Reports No Symptoms
Neuro: Reports No Symptoms
Endocrine: Reports No Symptoms
Hematologic / Lymphatic: Reports No Symptoms
Physical Exam
-
General: Well Developed, Well Nourished, No Apparent Distress and Comfortable
HEENT: Normocephalic, Atraumatic and Moist Mucous Membranes
Respiratory: Clear to Auscultation; Negative Wheezes, Rales, Rhonchi or Crackles
Cardiac: Regular Rhythm and S1/S2; Negative Murmur, Rub or JVD
GI: Soft, Nontender, Nondistended and Normal Bowel Sounds
Skin: Warm, Dry and Normal Turgor; Negative Rash, Ulcers, Lesions or Jaundice
Neuro: Awake, Alert, Oriented and AO x 3
Psych: Calm
[2025-07-24] MEDS: METHADONE 100 MG/10 ML 50 MG PO (07:48)
[2025-07-24 08:10] LABS: Hematocrit 45.9 % (39.0-52.0); Hemoglobin 15.9 g/dL (13.0-18.0); Mean Corp Hgb Conc. 34.6 g/dL (33.0-37.0); Mean Corpuscular Volume 85.2 fL (80.0-94.0); Platelet Count 243 10^3/uL (130-400); Red Cell Dist. Width 13.0 % (11.5-14.5)
[2025-07-24 08:55] LABS: ALT (SGPT) 37 U/L (0-50); AST (SGOT) 53 U/L (17-59); Albumin 4.2 g/dl (3.5-5.0); Alkaline Phosphatase 71 U/L (38-126); Blood Urea Nitrogen 22 mg/dl (9-20); Calcium 9.3 mg/dl (8.4-10.2); Carbon Dioxide 28 mmol/L (22-30); Chloride 101 mmol/L (98-107); Estimated Creatinine Clearance 119 ml/min; Glucose 93 mg/dl (70-99); Potassium 3.7 mmol/L (3.5-5.1); Sodium 136 mmol/L (135-145); Total Protein 7.1 g/dl (6.3-8.2); eGFR > 60.00
[2025-07-24 11:30] VITALS: BP 149/110
[2025-07-24] MEDS: TORADOL 15 MG IV (11:35)
[2025-07-24] MEDS: CATAPRES 0.1 MG PO (13:38)
[2025-07-24] MEDS: TIGAN 200 MG IM (13:41)
--- NOTE | 2025-07-24 14:06 | CM ---
CM following re: discharge planning.
Reviewed pt's chart. Guards at bedside.
Pt is from [facility] and pt will return back to [facility] when medically stable. Pt will receive substance abuse services at [facility]
Discharge order noted. Guards are aware and they will transport the pt back to [facility].
[facility] nursing report: [phone]
Discharge instructions fax: [phone]
D/C plan: return back to [facility].
[2025-07-24 15:11] VITALS: BP 165/118
[2025-07-24 15:24] VITALS: BP 143/112
--- NOTE | 2025-07-24 15:26 | PN.CDI ---
CDI
- -
CDI:
Physician Documentation Request
Admit Date: 07/21/25 15:30
Dear Doctor Jamir,
Patient admitted with acute opioid withdrawal.
Please review the following and provide your response in the progress notes.
Clinical Indicators:
Height: 6' 3'
Weight: 146 lb 11 oz
BMI: 18.3
Please provide an associated diagnosis related to the abnormal BMI, such as:
Underweight
Cachectic
Anorexia
Other
BMI < or = to 19
Underweight
Weight Loss
Cachectic
Anorexia
Use of terms such as suspected, likely, concern for, or probable (associated with a specific diagnosis that is being evaluated, monitored, or treated as if it exists) are acceptable and can be coded in the inpatient setting, when documented at the
time of discharge.
Thank you,
Jayde VARGAS,RN,CCDS
CDI Specialist
Available via tiger text
Please use your independent medical judgment in providing your response.
--- NOTE | 2025-07-24 16:34 | W.DCSUMMARY ---
Addendum entered and electronically signed by Werner Yeh MD 07/24/25 22:14:
Read, reviewed, and agree. See same day progress note for additional details.
Gee Yeh MD
Original Note:
Documented by User: Bakari Bowie MD, Resident 07/24/25 17:01
Discharge Summary
Discharge Data
Date of Admission: 07/21/25
Date of Discharge: 07/24/25
-
Pending Results: No
Hospital Course
Discharging Physician : Dr. Perez and Dr. Bowie
Disposition : [facility]
Primary care physician : ROLAND
Principal Discharge diagnosis : Acute opioid withdrawal
Chronic Discharge diagnosis : Opioid use disorder/dependency, substance abuse, hypertension, underweight
Hospital Course : Patient is a 39-year-old male who presents to the emergency department with signs and symptoms of opioid withdrawal. He has a past medical history of opioid substance abuse and dependency, hypertension, and prediabetes. In the
past he usually takes 100 mg of methadone daily and he also uses 5-6 bags of fentanyl that he smokes during the day. His last fentanyl use was on Sunday and he was incarcerated on Sunday and has been unable to get any methadone or opioids. In the
emergency department he states that he has nausea, sweating, anxiety, muscle pain, is weak, shaky, and has goosebumps. In the emergency department he was rated at a 25 on the clinical opioid withdrawal scale. While in the emergency department he
got tizanidine, clonidine, Toradol, and 50 mg of methadone. He was hypertensive, had an elevated respiratory rate, leukocytosis with a white blood cell count of 21.1. He had 2 EKGs conducted in the emergency department which showed elongated QTc
with frequent PVCs in the pattern of bigeminy. Patient was admitted to [facility] for management of acute opioid withdrawal and elevated QTc.
Patient was given clonidine 0.1 mg, tizanidine 2 mg, and Ketalar rack with Tigan to manage his acute withdrawal symptoms along with Subutex 8 mg. Patient was initially started on 8 mg of Subutex due to prior records of the patient receiving
Suboxone on the [facility]. Record showed that he had been receiving buprenorphine�naloxone 8-2 mg from 04/23/2025 up until 07/15/2025 where he received a 7 days dose refill. With the Suboxone the patient did not feel well and his COWS score
remained greater than 20 and his opioid withdrawal symptoms were poorly controlled and he stated he was getting Methadone from [facility] in [place]. Upon contacting [facility] in [place] and corroborating the patient records it was
concluded that the patient was taking 100 mg of methadone and the patient was immediately resumed on the methadone in order to treat his opioid withdrawal. Patient's urine drug screen was positive for opioids, methadone, fentanyl, amphetamines,
methamphetamines, benzodiazepines, and cocaine -but was negative for buprenorphine indicating that the patient had not been taking his Suboxone as intended and [facility] suggested that the patient may have been selling it. Unfortunately, after the
resumption of 100 mg of methadone the patient's QTc elongated at 618 and there was risk of the patient developing torsades de pointes. Patient's methadone dose was decreased to 50 mg and repeat EKG showed that his QTc had decreased below 450.
Patient was medically stable and his COWS score was 0-3. The patient is medically stable and will be discharged with 50 mg of methadone and 0.1 mg of clonidine. The patient should have a repeat EKG within 1 week following discharge, especially if
methadone is uptitrated because the increased doses appear to have a profound impact on his QTc variabilities.
The patient has reached maximal benefit from this hospital admission and the patient is appropriate for discharge at the present time. There are no barriers that would impede the patient from being discharged from the hospital at the present time.
The patient should follow-up with their primary care provider within 1 week following discharge.
Important imaging findings :
Echocardiogram conducted on 07/23/2025:
1. Normal biventricular size and function without regional wall motion abnormalities.
2. LVEF is 58% by De La Paz's biplane method of discs. Normal diastolic function.
3. No significant valvular disease. Insufficient TR for estimation of PASP.
4. No prior study available for comparison.
Procedure findings :
� First EKG conducted on 07/21/2025:
Sinus tachycardia
Biatrial enlargement
Left ventricular hypertrophy
Nonspecific ST and T wave abnormality
Prolonged QT
�Second EKG taken on 07/21/2025:
Sinus rhythm with frequent premature ventricular complexes in a pattern of bigeminy
Possible left atrial enlargement
Nonspecific ST abnormality
Abnormal ECG when compared to the first ECG on 07/21/2025
Premature ventricular complexes are now present
ST has depressed in inferior leads
QT is shortened
� EKG conducted on 07/22/2025:
Ectopic atrial rhythm with frequent premature ventricular complexes in a pattern of bigeminy
Minimal voltage criteria for left ventricular hypertrophy, may be a normal variant
T wave abnormality, consider inferior ischemia
Abnormal ECG when compared with the EKG of 07/21/2025
Nonspecific change in the ST segment in anterior leads
T wave inversion now evident in inferior leads
T wave inversion not evident in lateral leads
QT has lengthened
�First EKG conducted on 07/23/2025:
Ectopic atrial rhythm
Moderate voltage criteria for left ventricular hypertrophy, may be a normal variant
Nonspecific T wave abnormality
Prolonged QT
Abnormal ECG when compared to the EKG from 07/18/2025
Premature ventricular complexes are no longer present
T wave inversion is less evident in inferior leads
QT has lengthened -QTc intervals to 618
�Second EKG conducted on 07/23/2025:
Ectopic atrial rhythm
With frequent premature ventricular complexes
T wave abnormality, consider inferior ischemia
Prolonged QT
Abnormal ECG when compared to the first ECG of 07/23/2025
Premature ventricular complexes are now present
T wave inversion are more evident in the inferior leads
Inverted T waves have replaced nonspecific T wave abnormality in lateral leads
QT is shortened
� EKG conducted on 07/24/2025:
Unusual P axis, possible ectopic atrial rhythm
Minimal voltage criteria for left ventricular hypertrophy, may be normal variant
T wave abnormality, consider inferior ischemia
T wave abnormality, consider anterior lateral ischemia
Abnormal ECG when compared to the ECG of 07/23/2025
Ectopic atrial rhythm has replaced sinus rhythm
T wave inversion now evident in the anterior leads
QT has shortened -QTc interval at 448 ms
Discharge Plan
-
Patient Disposition: Long Term
Discharge Diagnosis/Procedures: Opioid Withdrawal
Condition: Good
Diet: No restrictions
Activity: No restrictions
Driving Restrictions: As prior to admission
Referrals:
[facility] [[facility], [facility]] - in less than 1 week
Prescriptions:
New
methadone [Methadose] 10 mg/mL Concentrate
50 mg PO DAILY Qty: 30 0RF
clonidine HCl 0.1 mg Tablet
0.1 mg PO Q6HPRN Qty: 30 0RF
Discharge Orders:
Discharge Patient (As Directed); Ordered 07/24/25
Ordered By: Bakari Bowie
Discharge Date and Time
Discharge Date/Time: 07/24/25 15:43
Print Language: YAKUT

Documented by User: Werner Yeh MD 07/24/25 22:09
Discharge Summary
Discharge Data
Date of Admission: 07/21/25
Date of Discharge: 07/24/25
Discharge Plan
-
Patient Disposition: Long Term
Discharge Diagnosis/Procedures: Opioid Withdrawal
Condition: Good
Diet: No restrictions
Activity: No restrictions
Driving Restrictions: As prior to admission
Referrals:
[facility] [[facility]] - in less than 1 week
Prescriptions:
New
methadone [Methadose] 10 mg/mL Concentrate
50 mg PO DAILY Qty: 30 0RF
clonidine HCl 0.1 mg Tablet
0.1 mg PO Q6HPRN Qty: 30 0RF
Discharge Orders:
Discharge Patient (As Directed); Ordered 07/24/25
Ordered By: Bakari Bowie
Discharge Date and Time
Discharge Date/Time: 07/24/25 15:43
Print Language: YAKUT
== END 2025-07-24 15:43 | DRG 897 ==
LOC: 2 NORTH 15:30
PROVIDERS: ADMITTING PHYSICIAN Family Medicine; EMERGENCY PHYSICIAN Emergency Medicine
DX: F11.23 Opioid dependence with withdrawal (principal); Z68.1 Body mass index [BMI] 19.9 or less, adult; I11.9 Hypertensive heart disease without heart failure; D72.829 Elevated white blood cell count, unspecified; F17.200 Nicotine dependence, unspecified, uncomplicated; F41.9 Anxiety disorder, unspecified; I49.3 Ventricular premature depolarization; R73.03 Prediabetes; R63.6 Underweight
CPT/HCPCS: 80053; 80076; 80306; 80307; 82077; 83735; 84100; 84484; 85025; 85027; 87070; 87147; 93005; 93306; 96361; 96374; 99285